=== PATIENT | male | born 1960 | race African-American/Black ===

== ENCOUNTER 2019-06-23 01:33 | Inpatient (IN) | payer BC, OTHER ==
[2019-06-23] VITALS (8 sets, daily range): BP systolic 108–130; BP diastolic 67–89
[~2019-06-23] VITALS: Ht 188 cm; Wt 103.4 kg
[2019-06-23] MEDS ORDERED: ALBUTEROL/IPRATROPIUM 3 ML NEB NEB ONE (01:45)
[2019-06-23 02:04] LABS: BASOPHILS # (AUTO) 0.1 (0.0-0.1); BASOPHILS % 0.7 % (0.0-1.0); EOSINOPHILS # (AUTO) 0.2 (0.0-0.4); EOSINOPHILS % 1.6 % (0.0-6.0); HEMATOCRIT 49.2 % (38.2-49.6); LYMPHOCYTES # (AUTO) 1.9 (1.0-3.2); LYMPHOCYTES % 13.9 % (18.0-39.1); MEAN CORPUSCULAR HEMOGLOBIN 31.7 pg (28-32); MEAN CORPUSCULAR HGB CONC 34.6 g/dL (31-35); MEAN CORPUSCULAR VOLUME 91.6 fL (81-99); MONOCYTES # (AUTO) 1.1 (0.2-0.8); MONOCYTES % 7.5 % (4.4-11.3); NEUTROPHILS # (AUTO) 10.5 (2.1-6.9); NEUTROPHILS % 75.9 % (38.7-80.0); PLATELET COUNT 273 x10e3/uL (140-360); RED BLOOD COUNT 5.37 x10e6/uL (4.3-5.7); RED CELL DISTRIBUTION WIDTH 15.2 % (11.7-14.4)
[2019-06-23 02:22] LABS: CREATINE KINASE 624 IU/L (30-200)
[2019-06-23 02:25] LABS: ANION GAP 19.3 mmol/L (8-16); BLOOD UREA NITROGEN 18 mg/dL (7-26); BUN/CREATININE RATIO 13 (6-25); CARBON DIOXIDE 19 mmol/L (22-29); CHLORIDE 106 mmol/L (98-107); CREATININE, SERUM 1.36 mg/dL (0.72-1.25); EST GLOMERULAR FILTRATION RATE > 60 ML/MIN (60-); GLUCOSE 140 mg/dL (74-118); POTASSIUM 4.3 mmol/L (3.5-5.1); SODIUM 140 mmol/L (136-145)
[2019-06-23 02:53] LABS: B-TYPE NATRIURETIC PEPTIDE2 169.5 pg/mL (0-100)
[2019-06-23] MEDS ORDERED: IOPAMIDOL 370 MG/ML 200 ML INFUS..BTL INJ ONE ×2 (03:18→11:02)
[2019-06-23] MEDS ORDERED: SODIUM CHLORIDE 0.9% 50ML 50 ML ONE ×2 (03:19→11:32)
--- NOTE | 2019-06-23 04:11 | Diagnostic Imaging Report ---
EXAM: CT Chest WITH contrast (PE Protocol) INDICATION: Cough, short of breath, congestion COMPARISON: None TECHNIQUE: Chest was scanned utilizing a multidetector helical scanner from the lung apex through the level of the diaphragm after administration of IV contrast. Thin section reconstructions were obtained. Coronal and sagittal reformations were obtained. Pulmonary embolism protocol was performed. IV CONTRAST: 100 mL of Isovue 370 COMPLICATIONS: None RADIATION DOSE: Total DLP: 604 mGy*cm Estimated effective dose: (DLP x 0.014 x size factor) mSv CTDIvol has been reviewed. It is below the limits set by the Radiation Protocol Committee (RPC). Dose modulation, iterative reconstruction, and/or weight based adjustment of the mA/kV was utilized to reduce the radiation dose to as low as reasonably achievable. FINDINGS: LINES/ TUBES: None. LUNGS AND AIRWAYS: Diffuse interlobular septal thickening and groundglass opacities. Smooth bilateral bronchial wall thickening. Mild mild upper lung centrilobular emphysematous changes. Prominent pulmonary vasculature. PLEURA: Small bilateral pleural effusions. HEART AND MEDIASTINUM: The thyroid gland is normal. No mediastinal, hilar or axillary lymphadenopathy. The heart is normal in size. There is no pericardial effusion. Mild cardiomegaly. Calcifications of the aorta and coronary arteries. The main pulmonary artery diameter is 3.5 cm, mildly dilated. The ascending thoracic aorta diameter is 3.5 cm, within normal limits. UPPER ABDOMEN: Unremarkable. BONES: There are degenerative changes in the spine. SOFT TISSUES: Unremarkable. IMPRESSION: 1. Mild cardiomegaly, pulmonary edema, and small bilateral pleural effusions. Mild main pulmonary artery dilation can be seen with pulmonary hypertension. 2. Coronary artery calcific atherosclerosis. 3. Calcific aortic valve disease. 4. No pulmonary embolism. Signed by: Tashi Duran DO on 06/23/2019 4:08 AM
--- NOTE | 2019-06-23 04:19 | Diagnostic Imaging Report ---
EXAMINATION: CHEST 2 VIEWS INDICATION: Cough COMPARISON: None FINDINGS: TUBES and LINES: None. LUNGS/PLEURA: Increased pulmonary interstitial markings and diffuse lung haziness. Small bilateral pleural effusions. No pneumothorax. Lung volumes are adequate. HEART AND MEDIASTINUM: The cardiomediastinal silhouette is mildly enlarged. BONES AND SOFT TISSUES: No acute osseous lesion. Soft tissues are unremarkable. UPPER ABDOMEN: No free air under the diaphragm. IMPRESSION: Mild cardiomegaly, pulmonary edema and small pleural effusions. Signed by: Tashi Duran DO on 06/23/2019 4:15 AM
[2019-06-23] MEDS ORDERED: SYMBICORT 16010.2 GM INH (04:30)
[2019-06-23] MEDS ORDERED: ANASTROZOLE1 MG PO (04:30)
[2019-06-23] MEDS ORDERED: PROAIR HFA INH8.5 GM INH (04:30)
[2019-06-23] MEDS ORDERED: EC-NAPROXEN500 MG PO (04:30)
[2019-06-23] MEDS ORDERED: FUROSEMIDE INJ 10 MG/ML 4 ML VIAL IV ONE (04:30)
--- NOTE | 2019-06-23 06:20 | NUR ---
Received the patient from Er in wheel chair with c/o CHF.assessment done.aaox4.no resp.distress.no pain voiced.nasal cannula 3 litre o2 started.tele #[id number] placed showing sinus rhythm.iv to right ac #18 g patent.oriented to the unit.bed locked and in lowest position.phone and call light within reach.instructed to call for assistance as needed.echo to be done.stable condition.
--- NOTE | 2019-06-23 07:10 | NUR ---
Bed side shift report given to the on coming Rn.stable condition.
--- NOTE | 2019-06-23 07:30 | NUR ---
Received patient and a/ox3, in bed, O2 in place, no resp distress, will monitor.
--- NOTE | 2019-06-23 07:30 | NUR ---
Received patient this morning, he is a new admission from ER admitted for CHF, rounds by Dr. Muñoz at this time, will monitor.
[2019-06-23 07:39] LABS: CREATINE KINASE MB 2.4 ng/mL (0-5.0)
[2019-06-23 07:54] LABS: CHOL/HDL RATIO 4.2 (3.9-4.7)
[2019-06-23] MEDS: FUROSEMIDE INJ 10 MG/ML 4 ML VIAL IV SCH ×2 (08:31→17:10)
[2019-06-23] MEDS: METOPROLOL SUCCINATE 25 MG TAB XL PO SCH (08:59)
[2019-06-23] MEDS ORDERED: LISINOPRIL 2.5 MG TAB PO SCH (09:00)
--- NOTE | 2019-06-23 09:00 | NUR ---
VSS, denies chest pains, c/o right shoulder pain but it feels better, will monitor, on 02 At this time, no resp distress but some SOB with exertion, will monitor.
[2019-06-23 10:01] LABS: ALANINE AMINOTRANSFERASE 22 IU/L (0-55); ALBUMIN 4.2 g/dL (3.5-5.0); ALBUMIN/GLOBULIN RATIO 1.1 (0.8-2.0); ALKALINE PHOSPHATASE 42 IU/L (40-150); ANION GAP 18.2 mmol/L (8-16); BLOOD UREA NITROGEN 16 mg/dL (7-26); BUN/CREATININE RATIO 12 (6-25); CALCIUM 9.3 mg/dL (8.4-10.2); CARBON DIOXIDE 23 mmol/L (22-29); CHLORIDE 103 mmol/L (98-107); CREATININE, SERUM 1.33 mg/dL (0.72-1.25); EST GLOMERULAR FILTRATION RATE > 60 ML/MIN (60-); GLUCOSE 128 mg/dL (74-118); POTASSIUM 4.2 mmol/L (3.5-5.1); SODIUM 140 mmol/L (136-145)
[2019-06-23] MEDS: SODIUM CHLORIDE 0.9% 1000ML 1,000 ML IV SCH (10:30)
[2019-06-23] MEDS: ASPIRIN 81 MG ENTERIC COATED PO SCH (10:57)
[2019-06-23] MEDS ORDERED: HEPARIN SOD (PORCINE) 1000 UNIT/ML 30ML ONE (11:01)
--- NOTE | 2019-06-23 11:01 | NUR ---
Patient picked up at this time for procedure
[2019-06-23] MEDS ORDERED: HEPARIN SOD/SOD CHLORIDE 2,000 ML ONE (11:02)
[2019-06-23] MEDS ORDERED: FENTANYL CITRATE/PF 100MCG/2 ML INJ ONE (11:02)
[2019-06-23] MEDS ORDERED: MIDAZOLAM HCL 2 MG/2 ML VIAL ONE (11:02)
[2019-06-23] MEDS ORDERED: NITROGLYCERIN/D5W 200 MCG/ML 250 ML ONE (11:02)
[2019-06-23] MEDS ORDERED: LIDOCAINE HCL 2% LOCAL 20 ML VIAL ONE (11:02)
[2019-06-23] MEDS ORDERED: SODIUM CHLORIDE 0.9% 1000ML 1,000 ML ONE (11:02)
[2019-06-23] MEDS ORDERED: BIVALRIUDIN 250 MG/VIAL VIAL IV ONE (11:32)
[2019-06-23] MEDS ORDERED: CEFAZOLIN SOD 2 GM/D5W 50ML 50 ML IV ONE (11:53)
--- NOTE | 2019-06-23 12:21 | NUR ---
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 VSS and no chest pains, no distress, tele monitor in place, right groin area with no bleeding, no hematoma, weak right dorsalis pedis pulse, will monitor, call light within reach,
--- NOTE | 2019-06-23 12:56 | History and Physical ---
CHIEF COMPLAINT: The patient is a 58-year-old male, who comes in with shortness of breath. HISTORY OF PRESENTING ILLNESS: Mr. Harsh Aly is a 58-year-old gentleman with a history of right shoulder pain. The patient had gone recently to an urgent care, was given anti-inflammatory NSAIDs and the patient was not feeling better. The patient did experience some shortness of breath, but attributed to his asthma, which he counseled to take medication for, but, however, the patient came in, was found to have pleural effusion and consistent diagnosis of congestive heart failure. The patient is admitted to the hospital for acute congestive heart failure and right shoulder pain. PAST MEDICAL HISTORY: History of asthma, history of hypertension, and history of hyperlipidemia. MEDICATIONS: The patient's medicines he takes at home are: 1. Albuterol. 2. ProAir two inhalations every 6 hours as needed. 3. Anastrozole 1 mg tablet once a week. 4. The patient also gets testosterone cypionate from [facility]. 5. The patient has been given naproxen 500 mg daily for anti-inflammatory purposes. PAST SURGICAL HISTORY: Noncontributory. SOCIAL HISTORY: No EtOH. No IV drug abuse. The patient lives with his . ALLERGIES: NO KNOWN DRUG ALLERGIES NOTED. REVIEW OF SYSTEMS: Negative for chest pain. Positive for shortness of breath on exertion and on rest. No nausea. No vomiting. No diarrhea. No constipation. No rectal bleeding. No hematochezia. No hematemesis. No swelling in the lower extremities. Positive for musculoskeletal right shoulder pain. FAMILY HISTORY: Father with diabetes mellitus, otherwise noncontributory. PHYSICAL EXAMINATION: GENERAL: The patient is a 58-year-old gentleman, well built, well nourished. VITAL SIGNS: Temperature is 95.9, pulse of 110, respirations of 22, blood pressure is 130/88, and pulse oximetry of 98%. HEENT: Normocephalic and atraumatic. Pupils are reactive to light and accommodation. CVS: S1 and S2, tachy. ABDOMEN: Nontender and nondistended. LUNGS: Positive for crackles in the lower lung bases. EXTREMITIES: No clubbing. No cyanosis. Trace amount of edema present. IMAGING STUDIES: Chest x-ray shows mild cardiomegaly with pulmonary edema and small pleural effusion. CT of the chest was done because of elevated D-dimer, shows mild cardiomegaly, pulmonary edema, and small bilateral pleural effusion, coronary artery calcified atherosclerosis and calcific aortic valve disease, no pulmonary embolism was discovered. LABORATORY VALUES: White count is elevated at 13.91, neutrophil count is 10.5, left shift present. Chemistry; sodium of 140, potassium 4.3, BUN of 18, and creatinine of 1.36. Lactic acid is 1.1. BNP was 169. Troponin was less than 0.05. Coags, D-dimer was 0.90. ASSESSMENT: Mr. Harsh Aly with: 1. Congestive heart failure, acute systolic. Plan echocardiogram. 2. Hypertension. The patient will be put on metoprolol ER 25 mg to control rate. 3. Hyperlipidemia. Check his lipids. 4. History of right shoulder pain. We will stop NSAID at this time. 5. Coronary artery calcification and atherosclerosis, probably will need a stress status and/or cardiac cath as an outpatient basis. 6. Acute kidney injury. We will continue monitoring his kidney status and also do a renal ultrasound. 7. We will go ahead and check his thyroid profile and also an A1c. Strict I's and O's will be followed. Low-salt diet and Cardiology consult with Dr. Najera has been initiated. Further recommendation per clinical course. We will continue to monitor the patient. MD ABHILASH LoveJ/MODL /[id number]
[2019-06-23 14:53] LABS: CREATINE KINASE MB 1.8 ng/mL (0-5.0)
--- NOTE | 2019-06-23 15:32 | NUR ---
Nutrition Screen Note RD Recommendation for Physician: -Continue cardiac diet Plan of Care: RD following, monitoring for tolerance and adequacy Nutrition reason for involvement: diagnosis - CHF Primary Diagnose(s): CHF PMH: asthma, hypertension, hyperlipidemia. Ht: 74 in Wt:231 lb BMI: 29.7 kg/m2 IBW:[address] Assessment: (06/23/19) Chart reviewed. Labs and meds reviewed. Pt is a 58 year old male admitted with CHF. Pt stated his appetite has been good and usually eats all of his meals. Per documentation in chart, pt consumed 50% of lunch today. No wt loss reported and pt mentioned he usually weighs 235 lbs . Pt currently has a wt of 231 lbs in chart. No N/V/D/C or chewing/swallowing issues noted. Will continue to monitor. Current Diet: Cardiac Malnutrition Evaluation (06/23/19) The patient does not meet criteria for a specified degree of malnutrition at this time. Will re-evaluate at follow-up as appropriate. Diet Education Needs Assessment: Pt was not interested in diet education at time of visit. Nutrition Care Level: low Signed: Karen Gray, RD, LD
--- NOTE | 2019-06-23 16:32 | Consultation ---
DATE OF CONSULTATION: Cardiac Consultation REASON FOR CONSULTATION: Congestive heart failure. HISTORY OF PRESENT ILLNESS: A 58-year-old gentleman, who was in his usual status of health. He claims for the last 20 years he does have asthma. He takes Symbicort and albuterol. For 2 to 3 weeks, he does have severe chest pressure, chest tightness on minimal activity and he attributed that to his asthma and he take his medications so frequently. Few days back, he started having complaining of severe right shoulder pain. He was seen in Urgent Care and he was given Methylprednisolone Dose Pack. Yesterday, his shortness of breath became very bad and he was not feeling well and is having cough and dyspnea on minimal activity. He came to the emergency room. His chest x-ray and CT scan are consistent with volume overload with bilateral pulmonary effusion. His cardiac enzymes were normal, but his total CK is elevated at 551. His EKG showing sinus tachycardia, left ventricular hypertrophy with strain pattern. In fact, his heart rate 120 at rest. He was admitted for further management. Cardiac consultation is obtained. I visited with the patient, whom definitely for the last 2 weeks having typical exertional angina characterized by severe shortness of breath and tightness. He cannot do much of activity. He needs to slow down. It is progressively worse and it is becoming at rest. He does have with that orthopnea, paroxysmal nocturnal dyspnea, or cough. There is no pleuritic component of chest pain. There is no recent cold-like illness. There is no syncope or presyncope. He noted his heart rate will increase by doing minimal activity. REVIEW OF SYSTEMS: GENERAL: No fever. No chills. No recent cold. HEENT: No congestion. No runny nose. PULMONARY: As per HPI. CARDIAC: As per HPI. GI: No hematemesis. No melena. : No hematuria. No dysuria. MUSCULOSKELETAL: Right shoulder pain with limited motion of the right shoulder. NEUROLOGICAL: No weakness. No deficit. HEMATOLOGY: No easy bruising or bleeding. SOCIAL HISTORY: He is . He is nonsmoker. Rarely alcohol drink. He works in [employer]. HOME MEDICATIONS: Symbicort and albuterol for 20 years and recently started on methylprednisone pack. ALLERGIES: NONE. PAST MEDICAL HISTORY: Asthma for 20 years and recent right shoulder ache. FAMILY HISTORY: Father alive, 86, is diabetic. Mother of lymphoma and cancer in her 70s. Four healthy brothers. No sisters. No biological children, but step children. PHYSICAL EXAMINATION: VITAL SIGNS: Height of 6 feet 2 inches, weight of 231 pounds, blood pressure 120/80, heart rate of 80, and respiratory rate of 18. HEENT: Pupils are reactive. NECK: No elevation of jugular venous pulsation. No bruit. CHEST: Clear to auscultation and percussion. HEART: PMI 5th left intercostal space. Normal first and second heart sound. ABDOMEN: Soft with good bowel sounds. EXTREMITIES: No cyanosis. No clubbing. No edema. No delay between pulses. Decreased feet pulses. NEUROLOGIC: Nonfocal. LABORATORY DATA: Sodium of 140, potassium of 4.3, BUN of 18, creatinine of 1.36, and glucose of 140. White blood cell count of 13.9, hemoglobin 17, hematocrit 49%, and platelet count of 273,000. BNP of only 170. CKs are elevated, but MB and troponin are normal. Hemoglobin A1c at 5.3. Triglycerides of 54, cholesterol of 192, HDL of 46, and LDL of 135. Chest x-ray, increased markings with bilateral pleural effusions. CT scan confirmed the finding. CT scan showed no pulmonary embolism and more importantly no dissecting aorta. IMPRESSION AND PLAN: 1. Acute congestive heart failure. 2. Typical exertional angina. 3. History of asthma. 4. Right shoulder pain, possible musculoskeletal in view of the abnormal finding on CT scan of dissection, etc. From a cardiac point of view, would recommend urgent echocardiogram and the patient definitely most likely have severe coronary artery disease as evidence of severe calcified artery and his symptoms. Regardless, the echocardiogram will help if it is normal LV, then coronary artery disease is his presentation. If it is very severe left ventricular dysfunction and his congestive heart failure, and the most likely etiology is coronary artery disease. Case discussed with the patient. We will keep him n.p.o. We will give a little bit IV fluids, as he got dose of iodine for the CT scan. His BUN and creatinine are mildly elevated at 18 and 1.3. We will start aspirin. We will start beta-erika. He is already on diuretics. We will hold ELLIE inhibitor because of the dye load. If the patient needs catheterization, it is high risk. Procedure risks, benefits, and alternatives are discussed and explained including , myocardial infarction, blood loss, etc. MD JAYDA Brock/RODNEY /[id number]
--- NOTE | 2019-06-23 16:40 | Diagnostic Imaging Report ---
EXAM: US RENAL RETROPERITONEAL COMP DATE: 06/23/2019 12:00 AM INDICATION: Acute kidney injury COMPARISON: None FINDINGS: The right kidney is normal in size measuring 13.8 x 6.6 x 6.0 cm with cortical thickness of 2.4 cm. Cortical echogenicity is within normal limits. There is a 5.2 x 3.3 x 3.6 cm cyst identified arising off the inferior pole of the right kidney. There is no evidence for solid renal mass, hydronephrosis, or shadowing calculi. The left kidney is normal in size measuring 11.8 x 5.4 x 5.9 cm with cortical thickness of 1.9 cm. Cortical echogenicity is within normal limits. There is no evidence for solid renal mass, hydronephrosis, or shadowing calculi. The urinary bladder demonstrates no significant abnormalities. Pre-void volume is 143 cc. Bilateral ureteral jets are noted. The prostate is prominent measuring 5.3 x 3.7 x 4.4 cm. IMPRESSION: Right renal cyst. Otherwise, unremarkable sonographic appearance of the bilateral kidneys. Prostatomegaly. Signed by: Dr. Parminder Hurley MD on 06/23/2019 4:37 PM
[2019-06-23] MEDS: ENOXAPARIN 30 MG/0.3 ML SYR SC SCH (17:10)
--- NOTE | 2019-06-23 18:50 | NUR ---
Patient stable, no resp distress, no chest pains, right groin area with no bleeding noted, no hematoma, OOB and ambulated, continues on O2 2L NC, will monitor.
--- NOTE | 2019-06-23 19:00 | NUR ---
Received report from previous nurse. Call light within reach. Patient in bed. Family at the bedside.
--- NOTE | 2019-06-23 19:08 | Operative Report ---
DATE OF PROCEDURE: SURGEON: Miya Najera MD TITLE OF THE PROCEDURE: Left cardiac catheterization. INDICATION: Congestive heart failure. TECHNICAL DETAILS: After the usual sterile preparation and draping procedure, intravenous Versed given for sedation and local xylocaine for anesthesia. A 4-[place] sheath established in the right common femoral artery. Delfino left 4 and 3DRC catheter to engage the coronaries. Pigtail for hemodynamic measurement and left ventriculogram. The findings were of severe left ventricular dysfunction and moderate proximal LAD disease, calcified. For that reason, we decided to do DFR study to evaluate that lesion. For that reason, the existing 4-[place] sheath exchanged to 6-[place] sheath. Guiding catheter was 6-[place] XB 3.5. Unfortunately, the DFR machine did not work. So we were unable to do it. At that time, attention was made to the groin. Wound was closed using closure device. RESULTS: A. Coronary angiogram. 1. Left main. Free of disease. 2. LAD. Proximally ostially long lesion at 50% calcified. 3. Circumflex coronary artery minimal plaquing. 4. Right coronary artery relatively small with 50% mid RCA disease. a. Hemodynamic: Aorta pressure 100/60, LV pressure 100/35. b. Left ventriculogram in the right on 2 oblique view showed markedly dilated left ventricle with an ejection fraction of 20% IMPRESSION: 1. Moderate coronary artery disease. 2. Severe left ventricular dysfunction with an ejection fraction of 20% with dilated left ventricle. 3. DFR machine nonfunctional. COMPLICATIONS: None. BLOOD LOSS: None. Miya Najera MD MOJ/MODL /[id number]
--- NOTE | 2019-06-23 19:59 | NUR ---
Called Dr. Muñoz for orders for respiratory and medication for sty the patient has on left lower eyelid. waiting for a call back Addendum: 06/23/19 at 2338 by Gisell Lemos RN respiratory treatment
--- NOTE | 2019-06-23 20:21 | NUR ---
Called Dr. Muñoz again for orders for respiratory treatment and medication for sty the patient has on left lower eyelid. waiting for a call back
--- NOTE | 2019-06-23 20:50 | NUR ---
Dr. Muñoz called back and asked for orders for respiratory treatment and medication for sty the patient has on left lower eyelid. Dr. Muñoz ordered q6 neb treatment and gentamycin ointment for patient sty
[2019-06-23] MEDS ORDERED: ALBUTEROL SULF 0.083% NEB SOLN 3 ML NEB NEB PRN (21:00)
[2019-06-23] MEDS: GENTAMICIN SULFATE 0.3% OPTH OINT 3.5GM TUBE OP SCH (21:15)
[2019-06-24] VITALS (7 sets, daily range): BP systolic 99–116; BP diastolic 62–80
[2019-06-24 06:07] LABS: BASOPHILS # (AUTO) 0.1 (0.0-0.1); EOSINOPHILS # (AUTO) 0.2 (0.0-0.4); EOSINOPHILS % 1.8 % (0.0-6.0); HEMATOCRIT 48.4 % (38.2-49.6); HEMOGLOBIN 16.3 g/dL (14.0-18.0); LYMPHOCYTES # (AUTO) 2.1 (1.0-3.2); LYMPHOCYTES % 22.1 % (18.0-39.1); MEAN CORPUSCULAR HEMOGLOBIN 31.3 pg (28-32); MEAN CORPUSCULAR HGB CONC 33.7 g/dL (31-35); MEAN CORPUSCULAR VOLUME 92.9 fL (81-99); MONOCYTES # (AUTO) 0.9 (0.2-0.8); MONOCYTES % 9.4 % (4.4-11.3); NEUTROPHILS # (AUTO) 6.1 (2.1-6.9); NEUTROPHILS % 65.4 % (38.7-80.0); PLATELET COUNT 249 x10e3/uL (140-360); RED BLOOD COUNT 5.21 x10e6/uL (4.3-5.7); RED CELL DISTRIBUTION WIDTH 15.4 % (11.7-14.4)
[2019-06-24 06:29] LABS: ALANINE AMINOTRANSFERASE 16 IU/L (0-55); ALBUMIN 3.6 g/dL (3.5-5.0); ALBUMIN/GLOBULIN RATIO 0.9 (0.8-2.0); ALKALINE PHOSPHATASE 36 IU/L (40-150); ANION GAP 14.7 mmol/L (8-16); BLOOD UREA NITROGEN 17 mg/dL (7-26); BUN/CREATININE RATIO 13 (6-25); CARBON DIOXIDE 27 mmol/L (22-29); CHLORIDE 101 mmol/L (98-107); CREATININE, SERUM 1.33 mg/dL (0.72-1.25); EST GLOMERULAR FILTRATION RATE > 60 ML/MIN (60-); GLUCOSE 112 mg/dL (74-118); POTASSIUM 3.7 mmol/L (3.5-5.1); SODIUM 139 mmol/L (136-145)
[2019-06-24 06:55] LABS: ANION GAP 14.7 mmol/L (8-16); BLOOD UREA NITROGEN 17 mg/dL (7-26); BUN/CREATININE RATIO 14 (6-25); CALCIUM 9.2 mg/dL (8.4-10.2); CARBON DIOXIDE 27 mmol/L (22-29); CHLORIDE 100 mmol/L (98-107); CREATININE, SERUM 1.21 mg/dL (0.72-1.25); EST GLOMERULAR FILTRATION RATE > 60 ML/MIN (60-); GLUCOSE 115 mg/dL (74-118); MAGNESIUM 2.1 MG/DL (1.3-2.1); POTASSIUM 3.7 mmol/L (3.5-5.1); SODIUM 138 mmol/L (136-145)
--- NOTE | 2019-06-24 07:13 | NUR ---
Gave report to oncoming nurse. Call light within reach. patient in bed.
--- NOTE | 2019-06-24 08:37 | Progress Note ---
DATE: SUBJECTIVE: The patient comes in with acute congestive heart failure. The patient did have a cardiac cath by Dr. Najera today. The patient showed moderate amount of coronary artery disease with EF of 20%. The patient is currently resting with a CPAP machine. No chest pain at this time. No shortness of breath. Did have some wheezing yesterday. Albuterol nebs were given, which corrected the problem. The patient's current medications, albuterol, aspirin, Lovenox, furosemide, metoprolol, and sodium chloride. The patient has been given some gentamicin for stye in his eye. OBJECTIVE: VITAL SIGNS: Temperature is 96.5, pulse of 87, respirations of 18, blood pressure is 113/77, pulse oximetry of 97%. HEENT: Normocephalic and atraumatic. Pupils are reactive to light and accommodation. CVS: S1 and S2 normal. Regular rate and rhythm. ABDOMEN: Nontender, nondistended. Cath site normal. No signs of hematoma present. LABORATORY DATA: White count is 9.33, hemoglobin of 16.3, hematocrit of 48.4. Chemistries; sodium is pending at this time. Coags, D-dimer is elevated with negative CT scan. ASSESSMENT: 1. A 58-year-old gentleman with acute congestive heart failure. 2. Coronary artery disease. 3. Hypertension. 4. Sleep apnea. 5. Questionable cardiomyopathy. PLAN: At this time, continue with beta-blockade. Continue with aspirin and diuresis. The patient will be followed up with Dr. Najera. Further care and plan depending on Dr. Najera. Further recommendation per clinical course. We will continue monitor the patient. At this time, we will continue with the current medication and follow up with Dr. Najera. MD ABHILASH LoveJ/MODL /[id number]
[2019-06-24 08:45] LABS: CREATINE KINASE MB 1.6 ng/mL (0-5.0)
[2019-06-24] MEDS: METOPROLOL SUCCINATE 25 MG TAB XL PO SCH (09:00)
[2019-06-24] MEDS: FUROSEMIDE INJ 10 MG/ML 4 ML VIAL IV SCH (09:00)
[2019-06-24] MEDS: GENTAMICIN SULFATE 0.3% OPTH OINT 3.5GM TUBE OP SCH ×4 (09:00→21:00)
[2019-06-24] MEDS: ASPIRIN 81 MG ENTERIC COATED PO SCH (10:22)
[2019-06-24] MEDS: SODIUM CHLORIDE 0.9% 1000ML 1,000 ML IV SCH (10:22)
--- NOTE | 2019-06-24 10:23 | NUR ---
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
[2019-06-24] MEDS ORDERED: METOPROLOL SUCCINATE 25 MG TAB XL PO ONE (10:45)
[2019-06-24] MEDS ORDERED: CLOPIDOGREL BISULFATE 75 MG TAB PO ONE (12:50)
[2019-06-24] MEDS: ENOXAPARIN 30 MG/0.3 ML SYR SC SCH (16:48)
--- NOTE | 2019-06-24 16:48 | NUR ---
Patient OOB and ambulating, provided with education information regarding CHF, no distress, will monitor, call light within reach
[2019-06-24] MEDS: FUROSEMIDE 40 MG TAB PO SCH (17:26)
--- NOTE | 2019-06-24 19:29 | NUR ---
Received change of shift report from AM nurse. Walking rounds completed.
--- NOTE | 2019-06-24 21:06 | NUR ---
Patient denies pain at this time. Continue monitor. AAOx3. IV intact,patent with no noted redness or swelling noted. Patient request IV to be restart in a different site. Will re site IV per patients request.
--- NOTE | 2019-06-24 21:27 | NUR ---
Re sited IV to left hand x1 stick 20G. Patient tolerated well.
[2019-06-25] VITALS (8 sets, daily range): BP systolic 109–151; BP diastolic 58–85
--- NOTE | 2019-06-25 | NUR ---
Patient sleeps with home CPAP.
--- NOTE | 2019-06-25 04:12 | NUR ---
Patient up to bathroom. Denies pain or discomfor at this time. Continue monitor.
[2019-06-25] MEDS: FUROSEMIDE 40 MG TAB PO SCH (05:34)
--- NOTE | 2019-06-25 05:52 | NUR ---
Patient resting quitly at this time. Continue monitor.
--- NOTE | 2019-06-25 06:54 | NUR ---
Received bedside shift report from off going nurse. Patient is resting in bed, no acute distress noted. Call light within reach. Bed in the lowest position.
[2019-06-25] MEDS: GENTAMICIN SULFATE 0.3% OPTH OINT 3.5GM TUBE OP SCH ×4 (08:52→22:44)
[2019-06-25] MEDS: CLOPIDOGREL BISULFATE 75 MG TAB PO SCH (08:52)
[2019-06-25] MEDS: ASPIRIN 81 MG ENTERIC COATED PO SCH (08:52)
[2019-06-25] MEDS: METOPROLOL SUCCINATE 50 MG TAB XL PO SCH (08:52)
[2019-06-25] MEDS ORDERED: METOPROLOL SUCCINATE 25 MG TAB XL PO SCH (09:00)
--- NOTE | 2019-06-25 10:04 | Progress Note ---
DATE: SUBJECTIVE: The patient is here for acute congestive heart failure. The patient is awaiting a LifeVest. Currently doing well. Albuterol, Atrovent treatments have been given. Increase in metoprolol noted. The patient has no chest pain at this time. Positive for some shortness of breath. OBJECTIVE: VITAL SIGNS: Temperature is 96.7, pulse of 97, respirations of 20, blood pressure is 111/58, and pulse oximetry of 94%. HEENT: Normocephalic and atraumatic. Pupils are reactive to light and accommodation. CVS: S1 and S2, tachy. LUNGS: Clear to auscultation bilaterally. ABDOMEN: Nontender and nondistended. EXTREMITIES: No clubbing, no cyanosis, no edema. LABORATORY VALUES: White count is 9.33, hemoglobin 16.3, and hematocrit is stable. Chemistries, creatinine is 1.33 today. ASSESSMENT: 1. Acute on chronic congestive heart failure. 2. Acute cardiomyopathy. 3. Hypertension. 4. Coronary artery disease. 5. Sleep apnea. 6. Hypertension. PLAN: Awaiting a LifeVest. The patient will be monitored with a LifeVest and possibly SCD as an outpatient. Further recommendation per clinical course. We will continue to monitor the patient. Possible discharge depending on LifeVest and also uptitration of the beta blockade for better rate control. MD ARNAUD Love/MODL /[id number]
[2019-06-25] MEDS: FUROSEMIDE INJ 10 MG/ML 4 ML VIAL IV SCH ×2 (11:53→22:44)
[2019-06-25] MEDS: LOSARTAN POTASSIUM 25 MG TAB PO SCH (11:53)
[2019-06-25] MEDS: CHLORASEPTIC SPRAY 177 ML BTL MM PRN (14:50)
[2019-06-25] MEDS: ENOXAPARIN 30 MG/0.3 ML SYR SC SCH (17:05)
--- NOTE | 2019-06-25 19:00 | NUR ---
Bedside shift report given to oncoming nurse. Patient is resting in bed. No acute distress noted. Call light within reach. Bed in the lowest position.
[2019-06-26] VITALS (7 sets, daily range): BP systolic 97–105; BP diastolic 57–82
[2019-06-26] MEDS: FUROSEMIDE 40 MG TAB PO SCH ×2 (06:12→17:00)
[2019-06-26 06:13] LABS: ALANINE AMINOTRANSFERASE 18 IU/L (0-55); ALBUMIN 3.6 g/dL (3.5-5.0); ALBUMIN/GLOBULIN RATIO 0.9 (0.8-2.0); ALKALINE PHOSPHATASE 36 IU/L (40-150); ANION GAP 15.8 mmol/L (8-16); BLOOD UREA NITROGEN 18 mg/dL (7-26); BUN/CREATININE RATIO 13 (6-25); CALCIUM 9.5 mg/dL (8.4-10.2); CARBON DIOXIDE 25 mmol/L (22-29); CHLORIDE 104 mmol/L (98-107); CREATININE, SERUM 1.37 mg/dL (0.72-1.25); EST GLOMERULAR FILTRATION RATE > 60 ML/MIN (60-); GLUCOSE 118 mg/dL (74-118); POTASSIUM 3.8 mmol/L (3.5-5.1); SODIUM 141 mmol/L (136-145)
--- NOTE | 2019-06-26 07:30 | NUR ---
received pt from previous shift, resting in bed no c/o pain
[2019-06-26] MEDS: CLOPIDOGREL BISULFATE 75 MG TAB PO SCH (08:30)
[2019-06-26] MEDS: METOPROLOL SUCCINATE 50 MG TAB XL PO SCH (08:30)
[2019-06-26] MEDS: LOSARTAN POTASSIUM 25 MG TAB PO SCH (08:30)
[2019-06-26] MEDS: ASPIRIN 81 MG ENTERIC COATED PO SCH (08:30)
[2019-06-26] MEDS: CHLORASEPTIC SPRAY 177 ML BTL MM PRN (08:30)
[2019-06-26] MEDS: GENTAMICIN SULFATE 0.3% OPTH OINT 3.5GM TUBE OP SCH ×4 (08:45→21:00)
--- NOTE | 2019-06-26 11:17 | Progress Note ---
DATE: SUBJECTIVE: This 58-year-old gentleman comes in with acute congestive heart failure. The patient was found to have EF of 25%. Awaiting LifeVest at this time. The patient continues to be short of breath. The patient is currently on albuterol, aspirin, clopidogrel, enoxaparin, Lasix, gentamicin ophthalmic ointment, losartan, metoprolol, and Chloraseptic for sore throat, which is dissipated. OBJECTIVE: VITAL SIGNS: Temperature is 97.7, pulse of 87, respirations of 18, blood pressure is 105/71, and pulse oximetry of 98%. HEENT: Normocephalic, atraumatic. Pupils are reactive to light and accommodation. The patient is on CPAP at this time. CVS: S1 and S2 normal. Regular rate and rhythm. LUNGS: Clear to auscultation bilaterally. ABDOMEN: Nontender, nondistended. EXTREMITIES: No clubbing, no cyanosis, no edema. LABORATORY DATA: Laboratory values none done today. Coags are normal. ASSESSMENT: A 58-year-old gentleman with: 1. Acute on chronic congestive heart failure. 2. Acute cardiomyopathy. 3. Hypertension. 4. Coronary artery disease. 5. Sleep apnea. 6. Hypertension. PLAN: Plan would be to wait for LifeVest. Continue with current medication, beta blockade, ELLIE inhibitors have been instituted. Further recommendation per clinical course. We will follow up with Cardiology as per his recommendations outpatient. The patient is status post cardiac cath with diagnosis of coronary artery disease. MD ARNAUD Love/NICOLEL /[id number]
--- NOTE | 2019-06-26 15:45 | NUR ---
spoke with dr moreno via phone, dr moreno states pt is not cleared to go home due to pt not having life vest . notified dr mcginnis as well
[2019-06-26] MEDS: ENOXAPARIN 30 MG/0.3 ML SYR SC SCH (17:00)
--- NOTE | 2019-06-26 19:05 | NUR ---
report given to next shift, pt resting in bed, no c/o pain or distress
[2019-06-27] VITALS (7 sets, daily range): BP systolic 102–113; BP diastolic 66–80
[2019-06-27] MEDS: FUROSEMIDE 40 MG TAB PO SCH ×2 (06:08→17:30)
--- NOTE | 2019-06-27 07:00 | NUR ---
BEDSIDE SHIFT REPORT RECEIVED FROM TEENAGE PROGRAM DIRECTOR RN. PT DENIES NEEDS AT THIS TIME.
[2019-06-27] MEDS: GENTAMICIN SULFATE 0.3% OPTH OINT 3.5GM TUBE OP SCH ×4 (09:01→20:24)
[2019-06-27] MEDS: ASPIRIN 81 MG ENTERIC COATED PO SCH (09:01)
[2019-06-27] MEDS: LOSARTAN POTASSIUM 25 MG TAB PO SCH (09:02)
[2019-06-27] MEDS: CLOPIDOGREL BISULFATE 75 MG TAB PO SCH (09:02)
[2019-06-27] MEDS: METOPROLOL SUCCINATE 50 MG TAB XL PO SCH (09:02)
--- NOTE | 2019-06-27 09:29 | Progress Note ---
DATE: SUBJECTIVE: The patient is a 58-year-old gentleman, who comes in with acute congestive heart failure, cardiomyopathy. The patient is awaiting a LifeVest. The patient is asymptomatic at this time. No chest pain or shortness of breath. No nausea, vomiting, or diarrhea. No constipation. No rectal bleeding. No hematochezia. No hematemesis. OBJECTIVE: VITAL SIGNS: Temperature is 96.9, pulse of 85, respirations of 18, blood pressure is 102/66, and pulse oximeter of 96%. HEENT: Normocephalic and atraumatic. CVS: S1 and S2 normal, regular rate and rhythm. RESPIRATION: Clear to auscultation bilaterally. ABDOMEN: Nontender and nondistended. EXTREMITIES: No clubbing. No cyanosis. No edema. LABORATORY DATA: No labs were done today. The patient's chemistries yesterday showed sodium of 141, potassium 3.8, and creatinine is 1.37, slightly turning on the higher side. MEDICATIONS: Medications he takes at home right now are: 1. Lasix 40 mg twice a day. 2. Lovenox 30 mg for DVT prophylaxis. 3. Losartan 25 mg. 4. Clopidogrel 75 mg. 5. Metoprolol 50 mg once a day. 6. Aspirin 81 mg. 7. Albuterol as needed. ASSESSMENT: 1. Acute systolic heart failure. 2. Hypertension. 3. History of asthma. PLAN: The patient is awaiting a LifeVest. We will leave it to the cookie padder's discretion if the patient can be discharged without a LifeVest. We will go ahead and write the prescription for Lasix, losartan, and metoprolol and follow up with Cardiology and Dr. Sandhu, his primary care physician in about a week's time. MD ARNAUD Love/MODL /[id number]
[2019-06-27] MEDS: ENOXAPARIN 30 MG/0.3 ML SYR SC SCH (17:28)
[2019-06-28] VITALS: BP 120/63
[2019-06-28 04:00] VITALS: BP 115/71
[2019-06-28] MEDS: FUROSEMIDE 40 MG TAB PO SCH (06:13)
--- NOTE | 2019-06-28 06:37 | Progress Note ---
DATE: SUBJECTIVE: This is a 58-year-old gentleman, comes in with acute congestive heart failure and cardiomyopathy. The patient has a history of asthma, is better with albuterol treatments. The patient also has a left eye stye, which is better currently. No chest pains. No shortness of breath. OBJECTIVE: VITAL SIGNS: Temperature is 97.3, pulse of 91, respirations of 19, blood pressure is 115/71, pulse oximetry of 95% on room air. HEENT: Normocephalic, atraumatic. GENERAL: The patient is alert and oriented x3, in good health. CVS: S1 and S2 normal. Regular rate and rhythm. ABDOMEN: Nontender, nondistended. EXTREMITIES: No clubbing, no cyanosis, no edema. LABORATORY VALUES: Were not done in the last 2 days. Throat culture shows regular upper respiratory rylan. IMAGING STUDIES: No imaging studies done. ASSESSMENT: 1. A 58-year-old gentleman with soodi-qt-lzanjft congestive heart failure. 2. Cardiomyopathy. 3. History of asthma. 4. Hypertension. 5. Hyperlipidemia. PLAN: We will continue Lasix 40 mg and Lovenox for DVT prophylaxis. Currently on losartan, clopidogrel, aspirin, and albuterol as needed. The patient is also up titrate his metoprolol to 100 mg once a day. Further recommendation per clinical course. The patient can be discharged. His LifeVest is delivered today. MD ANRAUD Love/MODL /[id number]
--- NOTE | 2019-06-28 07:06 | NUR ---
Received patient lying in bed with eyes closed. Respiration even and unlabored without SOB. Call light in reach.
[2019-06-28 07:44] VITALS: BP 121/85
[2019-06-28] MEDS: ASPIRIN 81 MG ENTERIC COATED PO SCH (09:13)
[2019-06-28] MEDS: GENTAMICIN SULFATE 0.3% OPTH OINT 3.5GM TUBE OP SCH ×2 (09:13→12:47)
[2019-06-28] MEDS: CLOPIDOGREL BISULFATE 75 MG TAB PO SCH (09:13)
[2019-06-28] MEDS: LOSARTAN POTASSIUM 25 MG TAB PO SCH (09:13)
[2019-06-28] MEDS: METOPROLOL SUCCINATE 50 MG TAB XL PO SCH (09:14)
[2019-06-28 09:44] VITALS: BP 121/85
[2019-06-28 11:18] VITALS: BP 94/81
--- NOTE | 2019-06-28 12:12 | NUR ---
Spoke with Mehran with lifevest. He states [employer] denied lifevest this am. Spoke with Chema ZABALA, ok to dc, informed patient of this. notified neel may
--- NOTE | 2019-06-28 12:19 | NUR ---
DR NAHED YAP FOR PT TO DISCHARGE HOME TODAY
--- NOTE | 2019-06-28 12:58 | NUR ---
Spoke with Wendy Maria States okay to discharge patient home with prescriptions.
[2019-06-28] MEDS ORDERED: TOPROL XL50 MG PO ×2 (13:05→13:09)
[2019-06-28] MEDS ORDERED: LOSARTAN POTASS25 MG PO (13:09)
[2019-06-28] MEDS ORDERED: LIPITOR20 MG PO (13:10)
[2019-06-28] MEDS ORDERED: FUROSEMIDE40 MG PO (13:10)
[2019-06-28] MEDS ORDERED: ASPIRIN81 MG PO (13:11)
[2019-06-28 15:41] VITALS: BP 107/83
--- NOTE | 2019-06-28 16:45 | NUR ---
Discontinued IV to left hand. Catheter intact, no bleeding noted. Transported patient via wheelchair to private vehicle. All belongings are taken by patient's spouse.
--- NOTE | 2019-06-30 05:38 | Progress Note ---
DATE: 06/28/2019 SUBJECTIVE: The patient comes in with small bowel obstruction. The patient is feeling better. Has been tolerating water and ice chips. Has had some bowel sounds and some amount of output in the ileostomy bag. OBJECTIVE: VITAL SIGNS: Temperature is 97.3, pulse of 91, respirations of 19, blood pressure is 115/71, and pulse oximetry of 95%. GENERAL: Alert and oriented x3. HEENT: Normocephalic and atraumatic. NG tube out. CVS: S1 and S2 normal. Regular rate and rhythm. ABDOMEN: Positive for bowel sounds. Peristomal hernia present. Ileostomy with some residual matter. EXTREMITIES: No clubbing, no cyanosis, and no edema. LABORATORY VALUES: DICTATION ENDS HERE MD ARNAUD Love/MODL /[id number]
--- OUTSIDE RECORDS SUMMARY | 2019-07-02 10:49 | XMS REPORT ---
Author Author [facility] Address Unknown Phone Unavailable Care Team Providers Care Grant Manager Name Role Phone Basilio MAGAÑA Unavailable Unavailable Problems This patient has no known problems. Allergies, Adverse Reactions, Alerts This patient has no known allergies or adverse reactions. Medications This patient has no known medications. Results Test Description Test Time Test Comments Text Results Atomic Results Result Comments US RENAL RETROPERITONEAL COMP 2019-06-23 16:33:00 [place] [address] Patient Name: ROHAN MILES MR #: [id number] : 1960 Age/Sex: 58/M Req #: [id number] [facility] Physician: JOSSIE MAGAÑA MD Ordered by: JOSSIE MAGAÑA MD Report #: [id number] Location: MED/SURG Room/Bed: [facility] Procedure: [id number] US/US RENAL RETROPERITONEAL COMP Exam Date: 06/23/19 Exam Time: 1601 REPORT STATUS: Signed EXAM: US RENAL RETROPERITONEAL COMP DATE: 06/23/2019 12:00 AM INDICATION: Acute kidney injury COMPARISON: None FINDINGS: The right kidney is normal in size measuring 13.8 x 6.6 x 6.0 cm with cortical thickness of 2.4 cm. Cortical echogenicity is within normal limits. There is a 5.2 x 3.3 x 3.6 cm cyst identified arising off the inferior pole of the right kidney. There is no evidence for solid renal mass, hydronephrosis, or shadowing calculi. The left kidney is normal in size measuring 11.8 x 5.4 x 5.9 cm with cortical thickness of 1.9 cm. Cortical echogenicity is within normal limits. There is no evidence for solid renal mass, hydronephrosis, or shadowing calculi. The urinary bladder demonstrates no significant abnormalities. Pre-void volume is 143 cc. Bilateral ureteral jets are noted. The prostate is prominent measuring 5.3 x 3.7 x 4.4 cm. IMPRESSION: Right renal cyst. Otherwise, unremarkable sonographic appearance of the bilateral kidneys. Prostatomegaly. Sig alejadnro by: Dr. Parminder Hurley MD on 06/23/2019 4:37 PM Dictated By: PARMINDER HURLEY MD 36 Transcribed By: CHAO on 06/23/191636 COPY TO: JOSSIE MAGAÑA MD CHEST 2 VIEWS 2019-06-23 04:09:00 [place] [address] Patient Name: ROHAN MILES MR #: [id number] : 1960 Age/Sex: 58/M Req #: [id number] [facility] Physician: Ordered by: JESSY AGGARWAL MD Report #: [id number] Location: ER Room/Bed: Procedure: [id number] DX/CHEST 2 VIEWS Exam Date: 06/23/19 Exam Time: 0230 REPORT STATUS: Signed EXAMINATION: CHEST 2 VIEWS INDICATION: Cough COMPARISON: None FINDINGS: TUBES and LINES: None. LUNGS/PLEURA: Increased pulmonary interstitial markings and diffuse lung haziness. Small bilateral pleural effusions. No pneumothorax. Lung volumes are adequate. HEART AND MEDIASTINUM: The cardiomediastinal silhouette is mildly enlarged. BONES AND SOFT TISSUES: No acute osseous lesion. Soft tissues are unremarkable. UPPER ABDOMEN: No free air under the diaphragm. IMPRESSION: Mild cardiomegaly, pulmonary edema and small pleural effusions. Signed by: Tashi Duran DO on 06/23/2019 4:15 AM Dictated By: TASHI DURAN DO 4 Transcribed By: CHAO on 06/23/19414 COPY TO: JESSY AGGARWAL MD CT CHEST W 2019-06-23 04:01:00 [place] [address] Patient Name: ROHAN MILES MR #: [id number] : 1960 Age/Sex: 58/M Req #: [id number] Adm Physician: Ordered by: JESSY AGGARWAL MD Report #: [id number] Location: ER Room/Bed: Procedure: [id number] CT/CT CHEST W Exam Date: 06/23/19 Exam Time: 0300 REPORT STATUS: Signed EXAM: CT Chest WITH contrast (PE Protocol) INDICATION: Cough, short of breath, congestion COMPARISON: None TECHNIQUE: Chest was scanned utilizing a multidetector helical scanner from the lung apex through the level of the diaphragm after administration of IV contrast. Thin section reconstructions were obtained. Coronal and sagittal reformations were obtained. Pulmonary embolism protocol was performed. IV CONTRAST: 100 mL of Isovue 370 COMPLICATIONS: None RADIATION DOSE: Total DLP: 604 mGy*cm Estimated effective dose: (DLP x 0.014 x size factor) mSv CTDIvol has been reviewed. It is below the limits set by the Radiation Protocol Committee (RPC). Dose modulation, iterative reconstruction, and/or weight based adjustment of the mA/kV was utilized to reduce the radiation dose to as low as reasonably achievable. FINDINGS: LINES/ TUBES: None. LUNGS AND AIRWAYS: Diffuse interlobular septal thickening and groundglass opacities. Smooth bilateral bronchial wall thickening. Mild mild upper lung centrilobular emphysematous changes. Prominent pulmonary vasculature. PLEURA: Small bilateral pleural effusions. HEART AND MEDIASTINUM: The thyroid gland is normal. No mediastinal, hilar or axillary lymphadenopathy. The heart is normal in size. There is no pericardial effusion. Mild cardiomegaly. Calcifications of the aorta and coronary arteries. The main pulmonary artery diameter is 3.5 cm, mildly dilated. The ascending thoracic aorta diameter is 3.5 cm, within normal limits. UPPER ABDOMEN: Unremarkable. BONES: There are degenerative changes in the spine. SOFT TISSUES: Unremarkable. IMPRESSION: 1. Mild cardiomegaly, pulmonary edema, and small bilateral pleural effusions. Mild main pulmonary artery dilation can be seen with pulmonary hypertension. 2. Coronary artery calcific atherosclerosis. 3. Calcific aortic valve disease. 4. No pulmonary embolism. Signed by: Tashi Duran DO on 06/23/2019 4:08 AM Dictated By: TASHI DURAN DO 7 Transcribed By: CHAO on 06/23/19407 COPY TO: JESSY AGGARWAL MD
== END 2019-06-28 16:45 | disposition home or self-care (01) | DRG 286 ==
LOC: ER 01:33 → ERHOLD 04:29 → MED/SURG 06:21 → OBSVTOIN 12:07
PROVIDERS: ADMIT Family Medicine; ATTEND Family Medicine
PROC: 4A023N7 Measurement of Cardiac Sampling and Pressure, Left Heart, Percutaneous Approach (ICD-10-PCS; principal; 2019-06-23)
PROC: B2111ZZ Fluoroscopy of Multiple Coronary Arteries using Low Osmolar Contrast (ICD-10-PCS; 2019-06-23)
PROC: B2151ZZ Fluoroscopy of Left Heart using Low Osmolar Contrast (ICD-10-PCS; 2019-06-23)
DX: I11.0 Hypertensive heart disease with heart failure (principal); I50.21 Acute systolic (congestive) heart failure; N17.9 Acute kidney failure, unspecified; E78.5 Hyperlipidemia, unspecified; I25.10 Atherosclerotic heart disease of native coronary artery without angina pectoris; I25.118 Atherosclerotic heart disease of native coronary artery with other forms of angina pectoris; M25.511 Pain in right shoulder; G47.33 Obstructive sleep apnea (adult) (pediatric); I42.9 Cardiomyopathy, unspecified; J45.909 Unspecified asthma, uncomplicated
CPT/HCPCS: 36415; 71046; 71260; 76770; 80048; 80053; 80061; 82550; 82553; 83036; 83518; 83605; 83735; 83880; 84443; 84484; 85025; 85379; 87070; 93005; 93306; 93458; 94640; 96374; 99152; 99153; 99284; C1753; C1760; C1766; C1887; J0583; J0690; J1644; J1650; J1940; J2001; J2250; J3010; J7030; Q9967